=== PATIENT | male | born 1990 | race Caucasian/White ===

== ENCOUNTER 2017-09-07 20:41 | Emergency (ER) | payer OTHER ==
[~2017-09-07] VITALS: Ht 175.3 cm; Wt 100.2 kg
[2017-09-07] MEDS ORDERED: TORADOL10 MG PO (22:26)
[2017-09-07 22:50] VITALS: BP 130/70
== END 2017-09-07 22:52 | disposition home or self-care (01) ==
LOC: EME 20:41
DX: J02.0 Streptococcal pharyngitis (principal); F17.200 Nicotine dependence, unspecified, uncomplicated
CPT/HCPCS: 99281; 99284; J1885; J2930; J7030